=== PATIENT | female | born 1975 | race Caucasian/White ===

== ENCOUNTER 2016-10-01 10:16 | Emergency (ER) | payer SELFPAY ==
[~2016-10-01] VITALS: Ht 172.7 cm; Wt 72.1 kg
[~2016-10-01 10:16] MED LIST: PENI500T PO
[2016-10-01 10:34] VITALS: BP 137/85; PULSE 78; RESP 16; TEMP 98.1; O2SAT 98
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
[2016-10-01 12:18] VITALS: BP 157/86; PULSE 72; RESP 16; O2SAT 96
[2016-10-01] MEDS ORDERED: SODIUM CHLORIDE 0.9% FLUSH 5 ML FLUSH IVF PRN (12:30)
[2016-10-01] MEDS ORDERED: PANTOPRAZOLE SODIUM 40 MG VIAL IVP ONE (12:30)
[2016-10-01 12:55] LABS: BASOPHIL # 0.1 TH/MM3 (0-0.2); BASOPHIL % 1.8 % (0.0-2.0); EOSINOPHIL # 0.1 TH/MM3 (0-0.4); EOSINOPHIL % 1.7 % (0.0-4.0); HEMATOCRIT 34.1 % (35.0-46.0); HEMO FLAGS DIFF FINAL; LYMPH % 40.5 % (9.0-44.0); LYMPHOCYTE # 2.5 TH/MM3 (1.0-4.8); MEAN CELL VOLUME 86.6 FL (80.0-100.0); MEAN CORPUSCULAR HEMOGLOBIN 28.3 PG (27.0-34.0); MEAN CORPUSCULAR HGB CONC 32.6 % (32.0-36.0); MONO % 8.2 % (0.0-8.0); NEUT % 47.8 % (16.0-70.0); PLATELET COUNT 393 TH/MM3 (150-450); RED BLOOD COUNT 3.94 MIL/MM3 (4.00-5.30); RED CELL DISTRIBUTION WIDTH 14.1 % (11.6-17.2); WHITE BLOOD COUNT 6.2 TH/MM3 (4.0-11.0)
[2016-10-01 13:02] LABS: CHLORIDE 105 MEQ/L (98-107); POTASSIUM 3.9 MEQ/L (3.5-5.1); SODIUM (NA) 141 MEQ/L (136-145)
[2016-10-01 13:09] LABS: ANION GAP 8 MEQ/L (5-15); BICARBONATE 28.3 MEQ/L (21.0-32.0); BLOOD UREA NITROGEN 13 MG/DL (7-18)
[2016-10-01 13:12] LABS: ALT (GPT) 18 U/L (10-53); AST (GOT) 12 U/L (15-37); GLOMERULAR FILTRATION RATE 74 ML/MIN (>89)
[2016-10-01 13:13] LABS: TOTAL BILIRUBIN ADULT 0.2 MG/DL (0.2-1.0)
[2016-10-01 13:15] LABS: ALKALINE PHOSPHATASE 82 U/L (45-117)
[2016-10-01] MEDS ORDERED: PROT40TA PO (13:33)
[2016-10-01 14:40] VITALS: BP 171/101; PULSE 79; RESP 18; O2SAT 97
== END 2016-10-01 14:40 | disposition home or self-care (01) ==
LOC: PHED 10:16
DX: K29.00 Acute gastritis without bleeding (principal); I10 Essential (primary) hypertension; Z87.11 Personal history of peptic ulcer disease
CPT/HCPCS: 80053; 83690; 85025; 96374; 99284; C9113

== ENCOUNTER 2016-12-29 07:52 | Emergency (ER) | payer SELFPAY ==
[~2016-12-29] VITALS: Ht 172.7 cm; Wt 79.0 kg
[~2016-12-29 07:52] MED LIST changes: -PENI500T PO; +PROT40TA PO
[2016-12-29 08:00] VITALS: BP 136/95; PULSE 78; RESP 15; TEMP 97.9; O2SAT 98
[2016-12-29] MEDS ORDERED: ACETAMINOPHEN 500 MG CPLT PO ONE (08:15)
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
[2016-12-29] MEDS ORDERED: NAPROXEN 500 MG TAB PO ONE (09:00)
== END 2016-12-29 08:59 | disposition home or self-care (01) ==
LOC: PHEFT 07:52
DX: S60.221A Contusion of right hand, initial encounter (principal); J45.909 Unspecified asthma, uncomplicated; F31.9 Bipolar disorder, unspecified; F32.9 Major depressive disorder, single episode, unspecified; M19.90 Unspecified osteoarthritis, unspecified site; F41.9 Anxiety disorder, unspecified; F39 Unspecified mood [affective] disorder; I10 Essential (primary) hypertension; W51.XXXA Accidental striking against or bumped into by another person, initial encounter
CPT/HCPCS: 73130; 99283

== ENCOUNTER 2017-12-14 13:35 | Emergency (ER) | payer SELFPAY ==
[~2017-12-14] VITALS: Ht 172.7 cm; Wt 78.6 kg
[2017-12-14 13:55] VITALS: BP 145/84; PULSE 94; RESP 16; TEMP 97.7; O2SAT 97
--- NOTE | 2017-12-14 14:22 | PD ---
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 She denies any fevers, vomiting, or other symptoms. She states the cramping is about a 6 out of 10 currently. Modifying Factors: None Associated Signs & Symptoms: Menstrual cramping, irregular menses for 10 days, heavy bleeding passing clots Risk Factors: History of uterine fibroids PFSH Past Medical History Arthritis: Yes Asthma: Yes Bipolar Disorder: Yes Anxiety: Yes Depression: Yes Cardiovascular Problems: Yes (htn not taking meds) Diminished Hearing: No Hypertension: Yes Respiratory: Yes (asthma) Immunizations Current: Yes Ulcer: Yes ?: Not LMP: 12/05/17 : 5 Para: 3 : 2 Tubal Ligation: Yes Social History Alcohol Use: Yes (WINE every other day) Tobacco Use: No Substance Use: No Allergies-Medications (Allergen,Severity, Reaction): Coded Allergies: Opioids - Morphine Analogues (Unverified Adverse Reaction, Severe, Vomiting, 12/14/17) Opioids-Meperidine and Related (Unverified Adverse Reaction, Severe, Vomiting, 12/14/17) Opioids-Methadone and Related (Unverified Adverse Reaction, Severe, Vomiting, 12/14/17) morphine (Unverified Adverse Reaction, Severe, Vomiting, 12/14/17) Reported Meds & Prescriptions Reported Meds & Active Scripts Active No Active Prescriptions or Reported Medications Review of Systems Except as stated in HPI: all other systems reviewed are Neg Physical Exam Narrative GENERAL: Well-developed middle-age female patient currently and mild distress. Awake and oriented 3. SKIN: Focused skin assessment warm/dry. HEAD: Atraumatic. Normocephalic. EYES: Pupils equal and round. No scleral icterus. No injection or drainage. ENT: No nasal bleeding or discharge. Mucous membranes pink and moist. NECK: Trachea midline. No JVD. CARDIOVASCULAR: Regular rate and rhythm. No murmur appreciated. RESPIRATORY: No accessory muscle use. Clear to auscultation. Breath sounds equal bilaterally. GASTROINTESTINAL: Abdomen soft, non-tender, nondistended. Hepatic and splenic margins not palpable. Benign. GENITOURINARY: Normal external genitalia without lesions or erythema. Vaginal vault with small amount of blood but no significant drainage. Cervical os was closed without drainage. No cervical motion tenderness. Uterus nontender and nonenlarged. Bilateral adnexa nontender without masses. MUSCULOSKELETAL: No obvious deformities. No clubbing. No cyanosis. No edema. NEUROLOGICAL: Awake and alert. No obvious cranial nerve deficits. Motor grossly within normal limits. Normal speech. PSYCHIATRIC: Appropriate mood and affect; insight and judgment normal. Data Data Last Documented VS Vital Signs Date Time Temp Pulse Resp B/P (MAP) Pulse Ox O2 Delivery O2 Flow Rate FiO2 12/14/17 13:55 97.7 94 16 145/84 (104) 97 Orders Orders Complete Blood Count With Diff (12/14/17 14:17) Ed Urine Pregnancytest Poc (12/14/17 14:17) Ed Discharge Order (12/14/17 15:34) Labs Laboratory Tests Test 12/14/17 14:25 White Blood Count 9.6 TH/MM3 Red Blood Count 3.61 MIL/MM3 Hemoglobin 11.7 GM/DL Hematocrit 33.9 % Mean Corpuscular Volume 93.8 FL Mean Corpuscular Hemoglobin 32.3 PG Mean Corpuscular Hemoglobin Concent 34.5 % Red Cell Distribution Width 15.5 % Platelet Count 296 TH/MM3 Mean Platelet Volume 8.2 FL Neutrophils (%) (Auto) 75.1 % Lymphocytes (%) (Auto) 17.8 % Monocytes (%) (Auto) 4.9 % Eosinophils (%) (Auto) 0.5 % Basophils (%) (Auto) 1.7 % Neutrophils # (Auto) 7.2 TH/MM3 Lymphocytes # (Auto) 1.7 TH/MM3 Monocytes # (Auto) 0.5 TH/MM3 Eosinophils # (Auto) 0.0 TH/MM3 Basophils # (Auto) 0.2 TH/MM3 CBC Comment DIFF FINAL Differential Comment MDM Medical Decision Making Medical Screen Exam Complete: Yes Emergency Medical Condition: Yes Medical Record Reviewed: Yes Interpretation(s) Laboratory Tests Test 12/14/17 14:25 Red Blood Count 3.61 MIL/MM3 (4.00-5.30) Hematocrit 33.9 % (35.0-46.0) Neutrophils (%) (Auto) 75.1 % (16.0-70.0) Differential Diagnosis Dysfunctional uterine bleeding versus threatened AB versus dysmenorrhea Narrative Course Patient is not . H&H is stable. Vital signs are stable. Pelvic exam shows a small amount of blood but not significant bleeding at the moment. At this point, my plan would be to release the patient with OCPs and to have her follow-up with [facility]. Return for any worsening in bleeding, pain, and as needed. The plan has been discussed with her and she states understanding. Diagnosis Primary Impression: Dysfunctional uterine bleeding Referrals: Vlad Guillaume MD Med/Other Pt SpecificInfo: Prescription(s) given Scripts Norethindrone-Ethinyl Estradiol (Ortho-Novum ) 1-35 Mg-Mcg Tab 1 TAB PO DAILY for Control, #1 PACK 0 Refills Prov: Nas Fonseca MD 12/14/17 Disposition: 01 DISCHARGE HOME Condition: Stable Nas Fonseca MD December 14, 2017 14:22
[2017-12-14 14:33] LABS: AUTOMATED NEUTROPHIL # 7.2 TH/MM3 (1.8-7.7); BASOPHIL # 0.2 TH/MM3 (0-0.2); BASOPHIL % 1.7 % (0.0-2.0); EOSINOPHIL % 0.5 % (0.0-4.0); HEMATOCRIT 33.9 % (35.0-46.0); HEMOGLOBIN 11.7 GM/DL (11.6-15.3); LYMPH % 17.8 % (9.0-44.0); LYMPHOCYTE # 1.7 TH/MM3 (1.0-4.8); MEAN CELL VOLUME 93.8 FL (80.0-100.0); MEAN CORPUSCULAR HEMOGLOBIN 32.3 PG (27.0-34.0); MEAN CORPUSCULAR HGB CONC 34.5 % (32.0-36.0); MEAN PLATELET VOLUME 8.2 FL (7.0-11.0); MONO % 4.9 % (0.0-8.0); MONOCYTE # 0.5 TH/MM3 (0-0.9); NEUT % 75.1 % (16.0-70.0); PLATELET COUNT 296 TH/MM3 (150-450); RED BLOOD COUNT 3.61 MIL/MM3 (4.00-5.30); RED CELL DISTRIBUTION WIDTH 15.5 % (11.6-17.2); WHITE BLOOD COUNT 9.6 TH/MM3 (4.0-11.0)
[2017-12-14] MEDS ORDERED: ORTH1TAB PO (15:37)
== END 2017-12-14 15:44 | disposition home or self-care (01) ==
LOC: PHED 13:35
DX: N93.8 Other specified abnormal uterine and vaginal bleeding (principal); M19.90 Unspecified osteoarthritis, unspecified site; J45.909 Unspecified asthma, uncomplicated; F31.9 Bipolar disorder, unspecified; F41.9 Anxiety disorder, unspecified; I10 Essential (primary) hypertension; Z88.5 Allergy status to narcotic agent
CPT/HCPCS: 84703; 85025; 99284